=== PATIENT | female | born 1980 | race Caucasian/White ===

== ENCOUNTER 2018-01-23 09:05 | Emergency (ER) | payer OTHER ==
[~2018-01-23] VITALS: Ht 162.6 cm; Wt 86.0 kg
[2018-01-23] MEDS ORDERED: ONDANSETRON HCL 4MG/2ML VIAL IV STA (09:37)
[2018-01-23] MEDS ORDERED: SODIUM CHLORIDE 0.9% 1,000 ML IV ONE (09:37)
[2018-01-23] MEDS ORDERED: MORPHINE SULFATE 4 MG/ML CPJ (NOT FOR IM USE) IV STA (09:37)
[2018-01-23 09:57] LABS: BASOPHILS % 0.3 % (0.0-2.0); EOSINOPHILS % 0.9 % (0.0-5.0); HEMATOCRIT. 39.1 % (36.0-48.0); HEMOGLOBIN. 13.2 g/dL (12.0-16.0); LYMPHOCYTES % 24.5 % (20.0-50.0); MEAN CORPUSCULAR HEMOGLOBIN 28.7 pg (28.0-32.0); MEAN CORPUSCULAR VOLUME 84.9 fL (81.0-99.0); MEAN PLATELET VOLUME 8.5 fl (7.4-10.4); NEUTROPHILS % 69.3 % (40.0-76.0); PLATELET 345 x1000/uL (130-400); RED BLOOD CELL COUNT 4.61 mill/uL (4.2-5.4); RED CELL DISTRIBUTION WIDTH 13.9 % (11.6-14.6)
[2018-01-23 10:01] LABS: CHLORIDE 109 mEq/L (98-107)
[2018-01-23 10:03] LABS: PROTHROMBIN TIME 10.2 sec (9.4-11.6)
[2018-01-23] MEDS ORDERED: MORPHINE SULFATE 4 MG/ML CPJ (NOT FOR IM USE) IV ONE ×2 (11:00→12:30)
[2018-01-23 11:13] LABS: HCG SCREEN NEGATIVE
[2018-01-23 11:31] LABS: KETONES URINE NEGATIVE (NEGATIVE); LEUKOCYTE ESTERASE URINE 3+ (NEGATIVE); NITRITE URINE POSITIVE (NEGATIVE); OCCULT BLOOD URINE TRACE (NEGATIVE); PROTEIN URINE NEGATIVE (NEGATIVE); SPECIFIC GRAVITY URINE 1.009 (1.005-1.030)
[2018-01-23 11:33] LABS: CLARITY URINE CLEAR (CLEAR); COLOR URINE ORANGE (YELLOW)
[2018-01-23] MEDS ORDERED: CEFTRIAXONE 1 G PREMIX 50 ML IV ONE (12:30)
[2018-01-23 13:51] VITALS: BP 107/84
== END 2018-01-23 13:55 | disposition home or self-care (01) ==
LOC: ER 09:35
DX: N10 Acute pyelonephritis (principal)
CPT/HCPCS: 36415; 71045; 74176; 80053; 81003; 83690; 84703; 85025; 85610; 86850; 86900; 86901; 87077; 87086; 87186; 93005; 96361; 96365; 96375; 96376; 99285; J0696; J2270; J2405; J7030; Z7610

== ENCOUNTER 2019-01-20 13:09 | Emergency (ER) | payer MEDICAID, OTHER ==
[~2019-01-20] VITALS: Ht 165.1 cm; Wt 82.0 kg
[2019-01-20] MEDS ORDERED: ONDANSETRON HCL 4MG/2ML INJ IV STA (13:32)
[2019-01-20] MEDS ORDERED: SODIUM CHLORIDE 0.9% 1,000 ML IV ONE (13:32)
[2019-01-20] MEDS ORDERED: MORPHINE SULFATE 4 MG/ML CPJ (NOT FOR IM USE) IV STA (13:32)
[2019-01-20 14:57] LABS: BASOPHILS % 0.2 % (0.0-2.0); HEMATOCRIT. 42.8 % (36.0-48.0); HEMOGLOBIN. 14.3 g/dL (12.0-16.0); LYMPHOCYTES % 10.8 % (20.0-50.0); MEAN CORPUSCULAR VOLUME 86.8 fL (81.0-99.0); MEAN PLATELET VOLUME 9.7 fl (7.4-10.4); MONOCYTES % 2.1 % (2.0-8.0); NEUTROPHILS % 86.9 % (40.0-76.0); PLATELET 308 x1000/uL (130-400); RED BLOOD CELL COUNT 4.93 mill/uL (4.2-5.4); RED CELL DISTRIBUTION WIDTH 13.7 % (11.6-14.6)
[2019-01-20 15:03] LABS: CHLORIDE 106 mEq/L (98-107)
[2019-01-20 15:07] LABS: ETHANOL BLOOD < 10 mg/dL
[2019-01-20 15:12] LABS: INR 1.1; PROTHROMBIN TIME 11.2 sec (9.6-11.0)
[2019-01-20 15:28] LABS: HCG SCREEN NEGATIVE
[2019-01-20] MEDS ORDERED: ONDANSETRON HCL 4MG/2ML INJ IV ONE ×2 (16:00→17:30)
[2019-01-20] MEDS ORDERED: LORAZEPAM 2MG/ML CPJ IV ONE (16:00)
[2019-01-20] MEDS ORDERED: KETOROLAC 30MG/ML VIAL IV ONE (16:00)
[2019-01-20] MEDS ORDERED: MORPHINE SULFATE 4 MG/ML CPJ (NOT FOR IM USE) IV ONE (17:30)
[2019-01-20 17:36] LABS: CLARITY URINE CLOUDY (CLEAR); COLOR URINE DARK YELLOW (YELLOW); KETONES URINE 3+ (NEGATIVE); LEUKOCYTE ESTERASE URINE TRACE (NEGATIVE); NITRITE URINE NEGATIVE (NEGATIVE); OCCULT BLOOD URINE NEGATIVE (NEGATIVE); PROTEIN URINE 2+ (NEGATIVE); SPECIFIC GRAVITY URINE 1.037 (1.005-1.030)
[2019-01-20 17:50] LABS: *AMPHETAMINES SCREEN URINE NEGATIVE (NEGATIVE); *BARBITURATES SCREEN URINE NEGATIVE (NEGATIVE)
[2019-01-20 17:51] LABS: *COCAINE SCREEN URINE NEGATIVE (NEGATIVE); CANNABINOID URINE SCREEN NEGATIVE (NEGATIVE); METHADONE URINE SCREEN NEGATIVE (NEGATIVE); PHENCYCLIDINE URINE SCREEN NEGATIVE (NEGATIVE)
[2019-01-20 18:05] LABS: *BENZODIAZEPINES SCREEN URINE PRESUMTIVE POSITIVE (NEGATIVE); OPIATES URINE SCREEN PRESUMTIVE POSITIVE (NEGATIVE)
[2019-01-20 18:43] VITALS: BP 111/67
== END 2019-01-20 19:07 | disposition home or self-care (01) ==
LOC: ER 14:45
DX: N30.90 Cystitis, unspecified without hematuria (principal); E86.0 Dehydration; Z98.890 Other specified postprocedural states
CPT/HCPCS: 36415; 74176; 80053; 80305; 80320; 81003; 83605; 83690; 83880; 84484; 84703; 85025; 85610; 85730; 87040; 87086; 93005; 96361; 96374; 96375; 96376; 99284; J1885; J2060; J2270; J2405; J7030; Z7610; G0480

== ENCOUNTER 2019-03-29 13:39 | Emergency (ER) | payer MEDICAID ==
[~2019-03-29] VITALS: Ht 167.6 cm; Wt 77.0 kg
[2019-03-29] MEDS ORDERED: ONDANSETRON HCL 4MG/2ML INJ IV STA (14:34)
[2019-03-29] MEDS ORDERED: SODIUM CHLORIDE 0.9% 1,000 ML IV ONE (14:34)
[2019-03-29] MEDS ORDERED: MORPHINE SULFATE 4 MG/ML CPJ (NOT FOR IM USE) IV STA (14:34)
[2019-03-29 15:17] LABS: BASOPHILS % 0.4 % (0.0-2.0); HEMATOCRIT. 39.6 % (36.0-48.0); HEMOGLOBIN. 13.3 g/dL (12.0-16.0); LYMPHOCYTES % 28.9 % (20.0-50.0); MEAN CORPUSCULAR HEMOGLOBIN 29.1 pg (28.0-32.0); MEAN CORPUSCULAR VOLUME 86.8 fL (81.0-99.0); MEAN PLATELET VOLUME 9.4 fl (7.4-10.4); MONOCYTES % 6.6 % (2.0-8.0); NEUTROPHILS % 63.1 % (40.0-76.0); PLATELET 281 x1000/uL (130-400); RED BLOOD CELL COUNT 4.57 mill/uL (4.2-5.4); RED CELL DISTRIBUTION WIDTH 13.7 % (11.6-14.6)
[2019-03-29 15:22] LABS: CHLORIDE 108 mEq/L (98-107)
[2019-03-29 15:46] LABS: HCG SCREEN NEGATIVE
[2019-03-29 17:38] LABS: CLARITY URINE CLOUDY (CLEAR); COLOR URINE YELLOW (YELLOW); KETONES URINE NEGATIVE (NEGATIVE); LEUKOCYTE ESTERASE URINE NEGATIVE (NEGATIVE); NITRITE URINE NEGATIVE (NEGATIVE); OCCULT BLOOD URINE NEGATIVE (NEGATIVE); PH URINE 5.5 (4.5-8.0); PROTEIN URINE 2+ (NEGATIVE); SPECIFIC GRAVITY URINE 1.051 (1.005-1.030); UROBILINOGEN URINE 0.2 E.U./dL (0.2-1.0)
[2019-03-29] MEDS ORDERED: HYDROCODONE/ACETAMINOPHEN 5/325MG TABLET PO ONE (18:00)
[2019-03-29] MEDS ORDERED: IOHEXOL-300 100 ML BOTTLE ONE (18:24)
[2019-03-29 18:29] VITALS: BP 111/65
[2019-03-29 18:33] LABS: METHADONE URINE SCREEN NEGATIVE (NEGATIVE)
[2019-03-29 18:35] LABS: *AMPHETAMINES SCREEN URINE NEGATIVE (NEGATIVE); *BARBITURATES SCREEN URINE NEGATIVE (NEGATIVE); CANNABINOID URINE SCREEN NEGATIVE (NEGATIVE); PHENCYCLIDINE URINE SCREEN NEGATIVE (NEGATIVE)
[2019-03-29 18:36] LABS: *BENZODIAZEPINES SCREEN URINE PRESUMTIVE POSITIVE (NEGATIVE); *COCAINE SCREEN URINE PRESUMTIVE POSITIVE (NEGATIVE); OPIATES URINE SCREEN PRESUMTIVE POSITIVE (NEGATIVE)
== END 2019-03-29 18:33 | disposition home or self-care (01) ==
LOC: ER 13:39
DX: N39.0 Urinary tract infection, site not specified (principal); Z98.890 Other specified postprocedural states; Z87.19 Personal history of other diseases of the digestive system; Z85.07 Personal history of malignant neoplasm of pancreas
CPT/HCPCS: 36415; 71045; 74177; 80053; 80305; 81003; 81025; 83690; 84703; 85025; 93005; 96374; 96375; 99284; J2270; J2405; J7030; Q9967; Z7610

== ENCOUNTER 2019-08-23 11:44 | Emergency (ER) | payer MEDICAID ==
[~2019-08-23] VITALS: Ht 162.6 cm; Wt 60.0 kg
[2019-08-23] MEDS ORDERED: MORPHINE SULFATE 4 MG/ML CPJ (NOT FOR IM USE) IV STA (12:20)
[2019-08-23] MEDS ORDERED: SODIUM CHLORIDE 0.9% 1,000 ML IV ONE (12:20)
[2019-08-23] MEDS ORDERED: ONDANSETRON HCL 4MG/2ML INJ IV STA (12:20)
[2019-08-23 13:04] LABS: CHLORIDE 99 mEq/L (98-107)
[2019-08-23 13:31] LABS: BASOPHILS % 0.7 % (0.0-2.0); EOSINOPHILS % 0.1 % (0.0-5.0); HEMATOCRIT. 47.1 % (36.0-48.0); MEAN CORPUSCULAR HEMOGLOBIN 29.1 pg (28.0-32.0); MEAN CORPUSCULAR VOLUME 85.5 fL (81.0-99.0); MEAN PLATELET VOLUME 9.4 fl (7.4-10.4); MONOCYTES % 3.9 % (2.0-8.0); NEUTROPHILS % 85.3 % (40.0-76.0); PLATELET 323 x1000/uL (130-400); RED CELL DISTRIBUTION WIDTH 13.8 % (11.6-14.6)
[2019-08-23 13:36] LABS: INR 1.2; PROTHROMBIN TIME 11.9 sec (9.6-11.0)
[2019-08-23] MEDS ORDERED: HYDROCODONE/ACETAMINOPHEN 10/325MG TABLET PO ONE (14:45)
[2019-08-23] MEDS ORDERED: MORPHINE SULFATE 4 MG/ML CPJ (NOT FOR IM USE) IV ONE ×2 (14:45→17:30)
[2019-08-23] MEDS ORDERED: IOHEXOL-300 100 ML BOTTLE ONE (16:56)
[2019-08-23 17:30] VITALS: BP 135/77
== END 2019-08-23 18:34 | disposition home or self-care (01) ==
LOC: ER 11:47
DX: R10.9 Unspecified abdominal pain (principal); R11.2 Nausea with vomiting, unspecified
CPT/HCPCS: 36415; 74177; 80053; 83605; 83690; 85025; 85610; 96361; 96374; 96375; 96376; 99284; J2270; J2405; J7030; Q9967